=== PATIENT | female | born 2000 | race Caucasian/White ===

== ENCOUNTER 2022-02-08 10:50 | Emergency (ER) | payer SELFPAY ==
[~2022-02-08] VITALS: Ht 154.9 cm; Wt 81.8 kg
[2022-02-08 11:10] VITALS: TEMP 97.9
[2022-02-08] MEDS ORDERED: NATESTO5.5 MG/Act (11:55)
[2022-02-08 13:02] VITALS: BP 121/83; PULSE 64
== END 2022-02-08 13:02 | disposition home or self-care (01) ==
LOC: COL.ER 10:50
DX: S09.90XA Unspecified injury of head, initial encounter (principal); X58.XXXA Exposure to other specified factors, initial encounter